=== PATIENT | male | born 1980 | race Caucasian/White ===

== ENCOUNTER 2019-09-04 19:16 | Emergency (ER) | payer SELFPAY ==
[2019-09-04 19:42] VITALS: BP 195/122; PULSE 88; RESP 16; TEMP 36.6; O2SAT 97; BMI 23.1
--- NOTE | 2019-09-04 20:03 | ED.WOUNDLAC ---
HPI - Wound/Laceration <AXEL Courteny - Last Filed: 09/04/19 20:42> General Chief Complaint: Wound/Laceration Stated Complaint: Gash Above Right Eyebrow Time Seen by Provider: 09/04/19 19:49 Source: patient Mode of arrival: Ambulatory Limitations: no limitations History of Present Illness HPI narrative: This is a 39-year-old male, smoker, who presents to ED with about 1 cm laceration above right lateral eyebrow from a metal from a fence when it tipped over from a strong wind today. Patient reports no other injuries into his eye and denies loss of consciousness from this. Patient cleaned the wound well at home before coming into ED. Patient is unsure of last tetanus immunization. Patient denies chronic health conditions. Related Data Allergies Allergy/AdvReac Type Severity Reaction Status Date / Time No Known Drug Allergies Allergy Verified 09/04/19 19:46 Review of Systems <AXEL Courtney - Last Filed: 09/04/19 20:42> Review of Systems Narrative: General: Denies fever, chills, fatigue, malaise, sweats. HEENT: Denies sinus pain, ear pain, sore throat, difficulty swallowing, dizziness. Respiratory: Denies dyspnea, cough, wheezing, hemoptysis, sputum. Cardiovascular: Denies chest pain, palpitations, orthopnea, edema. Gastrointestinal: Denies nausea, vomiting, abdominal pain, diarrhea, constipation, melena. : Denies dysuria, frequency, incontinence, hematuria, urinary retention. Musculoskeletal: Denies weakness, joint pain or bony pain. Skin: See HPI Neurologic: Denies weakness, headache, numbness, change in speech, confusion, seizures, incoordination. Psychiatric: No concerning psychosocial issues. 12-point review of systems is negative except for those stated above. Patient History <AXEL Courtney - Last Filed: 09/04/19 20:42> Medical History No significant past medical history (Acute) Surgical History No pertinent past surgical history (Acute) Social History Smoking Status: Current every day smoker Smoking Status: Current every day smoker alcohol intake frequency: 3 or more drinks per day Substance Use Type: does not use Exam <AXEL Courtney - Last Filed: 09/04/19 20:42> Narrative Exam Narrative: General appearance: well developed, well nourished, in no acute distress. Head: normocephalic, atraumatic, no scalp lesions, non-tender. ENT: Hearing grossly intact. Nose without bleeding, purulent discharge. Mucous membrane moist, no mucosal lesion. Neck/Thyroid: neck supple, full range of motion, no visible masses or meningeal signs. No JVD, non-tender without lymphadenopathy. Skin: no suspicious rashes, lesions over visible areas. Warm and dry and appropriate color for ethnicity. Heart: no clubbing, no cyanosis, no edema. Lungs: Breathing even and unlabored. No stridor. No accessory muscles used. Able to speak in full sentences. Chest: normal shape and expansion. Abdomen: non-obese, non-distended. Neurologic: alert and oriented. Cognitive exam, [employer] and PNS grossly intact on informal exam. Psych: good eye contact, normal affect. Initial Vital Signs Initial Vital Signs: Vital Signs Temperature 97.9 F 09/04/19 19:42 Pulse Rate 88 09/04/19 19:42 Respiratory Rate 16 09/04/19 19:42 Blood Pressure 195/122 H 09/04/19 19:42 Pulse Oximetry 97 09/04/19 19:42 Skin Trauma: laceration (1 cm above right lateral eyebrow) <Gurmeet Garner DO - Last Filed: 09/04/19 23:37> Initial Vital Signs Initial Vital Signs: Vital Signs Temperature 97.9 F 09/04/19 19:42 Pulse Rate 88 09/04/19 19:42 Respiratory Rate 16 09/04/19 19:42 Blood Pressure 195/122 H 09/04/19 19:42 Pulse Oximetry 97 09/04/19 19:42 Procedures <AXEL Courtney - Last Filed: 09/04/19 20:42> Laceration Repair Laceration 1: Site: face (Right lateral eyebrow) Side (If applicable): right Size (cm): 1 Description: linear Depth: simple, single layer Pre-repair: wound explored (Cleaned with soap and water) Skin layer closed with: dermabond Scores <Manuelito RennerMADELAINE RabagoP - Last Filed: 09/04/19 20:42> GCS [place] coma scale eye opening: Spontaneous [place] coma scale verbal response: Orientated Teresa coma scale motor response: Obey commands [place] coma scale total score: 15 Course <Manuelito RennerAbenaMADELAINE toribioP - Last Filed: 09/04/19 20:42> Orders Ordered: Discontinued Medications Diphtheria/Tetanus/Acell Pertussis (Adacel) 0.5 ml IM .ONCE ONE Stop: 09/04/19 19:47 Last Admin: 09/04/19 20:21 Dose: 0.5 ml Documented by: LISANDRA Vital Signs Vital signs: Vital Signs - 8 hr 09/04/19 19:42 09/04/19 20:25 Temperature 97.9 F Pulse Rate 88 62 Respiratory Rate 16 15 Blood Pressure 195/122 H Blood Pressure [Left Arm] 179/108 H Pulse Oximetry 97 99 <Gurmeet Garner DO - Last Filed: 09/04/19 23:37> Orders Ordered: Discontinued Medications Diphtheria/Tetanus/Acell Pertussis (Adacel) 0.5 ml IM .ONCE ONE Stop: 09/04/19 19:47 Last Admin: 09/04/19 20:21 Dose: 0.5 ml Documented by: LISANDRA Vital Signs Vital signs: Vital Signs - 8 hr 09/04/19 19:42 09/04/19 20:25 Temperature 97.9 F Pulse Rate 88 62 Respiratory Rate 16 15 Blood Pressure 195/122 H Blood Pressure [Left Arm] 179/108 H Pulse Oximetry 97 99 MDM - Wound/Laceration <Manuelito AcevedokadeArielMADELAINE toribioP - Last Filed: 09/04/19 20:42> Differential Diagnosis Differential diagnosis: Likely laceration Medical Records Attestation: I reviewed the patient's medical records. [facility] Narrative Medical decision making narrative: This is a 39-year-old male who sustained a 1 cm laceration above right lateral eyebrow from a metal fence. No other injuries were discovered or reported. Patient was updated Tdap today. Laceration has been repaired with Dermabond which patient tolerated well. Dermabond laceration care and return precautions were discussed with the patient and patient verbalized understanding and agreement with the treatment plan. Discharge Plan Departure Patient Disposition: Home Clinical Impression: Laceration Discharge Date/Time: 09/04/19 20:56 Instructions: Treatments for High Blood Pressure: More Than Just Taking a Pill, Essential Hypertension, DI for Laceration Repair With Dermabond Activity Restrictions/Additional Instructions: You have been diagnosed with [1 cm laceration above lateral right eyebrow which has been repaired with Dermabond. The Tdap has been updated today this will be good for about 10 years]. What to do: *Take your medications as directed. If you have discomfort he can take [id number] Tylenol and or Motrin as needed. My Dermabond DC: Please do not get your wound soaked in the water until the laceration has healed. Keep your dressing intact for next 24 hrs. After then, you could remove your dressing, wash with soap and water. Pat dry with clean papertowel and dress it. Please avoid using oil based ointment, cream, lotion and etc since this may make dermabond lose and remove prematurely. Dermabond will come off in 5-7 days on its own. Do not peel this off or pick on it. You can change dressing as needed and daily. Please monitor for signs and symptoms for infection such as increasing redness, swelling, warmth, pain, fever, purulent discharge. If this occurs, please return to ED or follow up with your primary care physician since your wound may be infected. Please follow up with your primary care provider in 2-3 days for recheck wound. Please keep your wound clean, dry and intact all times. Referrals: [facility] [Outside] <Gurmeet Garner DO - Last Filed: 09/04/19 23:37> Sign Out Provider Sign Out Attestation: Dr Garner Co-Sign Statement: I was available for consultation during this patient's emergency department visit. This chart is signed by myself for administrative purposes only. I did not have direct contact with this patient during this visit. They were seen independently by the APC.
[2019-09-04] MEDS: TET,DIPH,PERTUSS(ACELL),VAC/PF 0.5 ML SYRINGE IM (20:21)
[2019-09-04 20:25] VITALS: BP 179/108; PULSE 62; RESP 15; O2SAT 99
--- NOTE | 2019-09-04 20:26 | PC.NURSE ---
Pt aware of high bp readings. Discussed need for follow up as well as return precautions. Pt verbalized understanding. Denies chest pain/shortness of breath/headache or any other concerns at this time.
== END 2019-09-04 20:56 | disposition home or self-care (01) ==
PROVIDERS: Emergency Provider Nurse Practitioner Family
DX: S01.111A Laceration without foreign body of right eyelid and periocular area, initial encounter (principal); W45.8XXA Other foreign body or object entering through skin, initial encounter; Z23 Encounter for immunization
CPT/HCPCS: 90471; 99283; 99284; 90715

== ENCOUNTER → 2020-04-27 16:26 | Outpatient (CLI) | payer SELFPAY ==
[2020-04-27 17:47] LABS: Alanine Aminotransferase 28 IU/L (<50); Albumin 4.6 g/dL (3.5-5.0); Albumin Globulin Ratio 1.6 (1.0-2.8); Alkaline Phosphatase 72 U/L (38-126); Aspartate Aminotransferase 34 IU/L (17-59); BUN Creatinine Ratio 12.7 (6-22); Bilirubin Total 0.6 mg/dL (0.2-1.3); Blood Urea Nitrogen 10 mg/dL (9-20); Calcium 9.6 mg/dL (8.4-10.2); Carbon Dioxide 31 mmol/L (22-32); Chloride 101 mmol/L (98-107); Estimated Glomerular Filt Rate > 60.0 mL/min (>60); Globulin 2.9 g/dL (1.7-4.1); Glucose 116 mg/dL (70-100); HEMOLYSIS < 15 (0-50); Potassium 4.2 mmol/L (3.4-5.1); Sodium 136 mmol/L (137-145); Total Protein 7.5 g/dL (6.3-8.2)
[2020-04-27 18:14] LABS: TSH w/ Reflex to FT4 1.44 uIU/mL (0.47-4.68)
[2020-04-27 18:37] LABS: Creatinine Urine Random 80.7 mg/dL
[2020-04-27 18:53] LABS: Microalbumin Urine Random < 0.6 mg/dL (0-1.6)
== END ==
PROVIDERS: PCP Family Medicine; Referring Provider Family Medicine; Visit Provider Family Medicine
DX: I10 Essential (primary) hypertension (principal)
CPT/HCPCS: 36415; 80053; 82043; 82570; 84443

== ENCOUNTER → 2020-10-05 16:21 | Outpatient (CLI) | payer OTHER, SELFPAY ==
[2020-10-05] MEDS: COVID-19 VACC #1, MRNA(MOD) 100 MCG/0.5 ML VIAL IM (16:26)
== END ==
PROVIDERS: PCP Family Medicine; Visit Provider Internal Medicine
DX: Z23 Encounter for immunization (principal)
CPT/HCPCS: 0011A; 91301

== ENCOUNTER → 2020-11-01 15:56 | Outpatient (CLI) | payer OTHER, SELFPAY ==
[2020-11-01] MEDS: COVID-19 VACC #2, MRNA(MOD) 100 MCG/0.5 ML VIAL IM (16:01)
== END ==
PROVIDERS: PCP Family Medicine; Visit Provider Internal Medicine
DX: Z23 Encounter for immunization (principal)
CPT/HCPCS: 0012A; 91301

== ENCOUNTER → 2023-12-22 15:10 | Outpatient (CLI) | payer SELFPAY ==
[2023-12-22 17:39] LABS: Alanine Aminotransferase 26 IU/L (<50); Albumin 4.5 g/dL (3.5-5.0); Albumin Globulin Ratio 1.9 (1.0-2.8); Alkaline Phosphatase 71 U/L (38-126); Aspartate Aminotransferase 33 IU/L (17-59); BUN Creatinine Ratio 18.5 (6-22); Bilirubin Total 0.8 mg/dL (0.2-1.3); Blood Urea Nitrogen 17 mg/dL (9-20); Carbon Dioxide 27 mmol/L (22-32); Chloride 105 mmol/L (98-107); Estimated Glomerular Filt Rate > 60 mL/min (>60); Globulin 2.4 g/dL (1.7-4.1); Glucose 114 mg/dL (70-100); HEMOLYSIS < 15 (0-50); Potassium 4.6 mmol/L (3.4-5.1); Sodium 140 mmol/L (137-145); Total Protein 6.9 g/dL (6.3-8.2)
== END ==
LOC: LAB 15:10
PROVIDERS: PCP Family Medicine; Referring Provider Family Medicine; Visit Provider Family Medicine
DX: I10 Essential (primary) hypertension (principal); F17.200 Nicotine dependence, unspecified, uncomplicated; F10.20 Alcohol dependence, uncomplicated
CPT/HCPCS: 36415; 80053